=== PATIENT | male | born 1970 | race Caucasian/White ===

== ENCOUNTER 2022-11-23 13:05 | Emergency (ER) | payer OTHER, SELFPAY ==
[2022-11-23 13:06] VITALS: BP 79/64; PULSE 44; RESP 16; TEMP 36.6; O2SAT 98; BMI 26.4
[2022-11-23 13:29] VITALS: BP 119/86
--- NOTE | 2022-11-23 14:13 | RAD_ITS ---
STUDY: X-RAY - LEFT HAND REASON FOR EXAM: Male, 52 years old. Laceration between the first and second metacarpals. TECHNIQUE: 3 view(s) of the hand. COMPARISON: None. FINDINGS: Normal radiocarpal articulation. Normal distal radioulnar joint. Normal visualized carpal bones. Normal carpal articulations Normal carpometacarpal articulation of the thumb. Normal second through fifth carpometacarpal joints. Normal metacarpi. Normal metacarpophalangeal joint of the thumb. Normal interphalangeal joint of the thumb. Normal proximal and distal phalanges of the thumb. Normal metacarpophalangeal joints of the second through fifth fingers. Normal proximal and distal interphalangeal joints of the second through fifth fingers. Normal phalanges of the second through fifth fingers. Soft tissue laceration. No radiopaque foreign body is seen. RAD/Hand Min 3 Views IMPRESSION: Soft tissue laceration. No radiopaque foreign body is seen. Electronically Signed: Sancho Perez MD at 14:52 EDT ,
--- NOTE | 2022-11-23 14:14 | EX.ED.DYSGE1 ---
HPI <AMENA Greene - Last Filed: 11/23/22 16:35> History of Present Illness Chief Complaint: Laceration Narrative Narrative: 52-year-old male with history of difficulty hearing, chronic stomach issues who presents to the emergency department after left hand injury. Patient was using a bow and arrow, unfortunately he was using a arrow that has splintered, when he shot it it broke striking his left hand. He is concerned that there is carbon fibers in his hand. He does have a flap-like laceration to the dorsal aspect of the left hand. Unknown tetanus vaccination. Patient is able move all fingers, he states he has some numbness to the left index finger. No other injury noted. PFSH <AMENA Greene - Last Filed: 11/23/22 16:35> [facility] Home Medications cephalexin 500 mg capsule 500 mg PO TID #21 caps 11/23/22 [Rx Last Taken Unknown] sucralfate 1 gram tablet 1 g PO 4X/DAY 11/23/22 [History Last Taken Unknown] Allergy/AdvReac Type Severity Reaction Status Date / Time Antihistamines - Alkylamine Allergy Other Verified 11/23/22 13:07 Social History Smoking Status: Never smoker ROS <AMENA Greene - Last Filed: 11/23/22 16:35> ROS ED ROS Narrative Constitutional: Negative for fever, chills, weight loss, weakness Eyes: Negative for vision loss, vision change, double vision ENT: Negative for any sore throat, ear pain, congestion Cardiovascular: Negative for any chest pain, tightness, palpitations Respiratory: Negative for any cough, sputum production, hemoptysis, dyspnea, dyspnea on exertion, orthopnea Gastrointestinal: Negative for any abdominal pain, nausea, vomiting, diarrhea, constipation, blood in stool, blood in vomit : Negative for any urinary frequency, dysuria, retention, blood in urine Muscle skeletal: Negative for any muscle joint pain, stiffness, myalgias, arthralgias, neck pain, back pain. Positive left hand pain, left hand laceration Neurological: Negative for any headache, syncope, numbness or tingling, dizziness Skin: Negative for any rashes, lumps, itching, abrasions. Positive for laceration to the left hand Psychiatric: Negative for any depression, anxiety, stress, suicidal ideation, homicidal ideation Hematologic: Negative for any easy bruising, excessive bruising, easy bleeding Allergies: Negative for any eczema, hives, rash EXAM <AMENA Greene - Last Filed: 11/23/22 16:35> Physical Exam Narrative Exam Narrative: Vital signs reviewed. Extremities: No peripheral edema, no signs of gross trauma or deformity. Active full range of motion of all extremities. Patient is able to fully extend, flex all fingers of the left hand. On the dorsal aspect of the hand in between the thumb and index finger, there is a 2 cm flap-like laceration. No obvious foreign body noted. Patient has +2 radial pulse. Neuro: Cranial nerves II through XII intact, no focal neurological deficits. Skin: Clean dry and intact with no rash, purpura, petechiae, vesicles or pustules. Backs/flank: No CVA tenderness, no midline spinal tenderness, no deformity. Psych: Normal mood and affect. No SI, HI or acute psychosis. Const Vital Signs: 11/23/22 13:06 11/23/22 13:29 Temperature 97.8 F Temperature Source Temporal Pulse Rate 44 L Respiratory Rate 16 Blood Pressure 79/64 L 119/86 H Blood Pressure Mean 69 97 Pulse Ox 98 Oxygen Delivery Method Room Air <Dr. Wiley Armendariz DO - Last Filed: 11/24/22 07:52> Physical Exam Const Vital Signs: 11/23/22 13:06 11/23/22 13:29 Temperature 97.8 F Temperature Source Temporal Pulse Rate 44 L Respiratory Rate 16 Blood Pressure 79/64 L 119/86 H Blood Pressure Mean 69 97 Pulse Ox 98 Oxygen Delivery Method Room Air MDM <AMENA Greene - Last Filed: 11/23/22 16:35> MDM Radiography Diagnostic Testing: Clinical Impression(s) from Imaging Studies Hand X-Ray 11/23/22 14:13 IMPRESSION: Soft tissue laceration. No radiopaque foreign body is seen. Electronically Signed: Sancho Perez MD at 14:52 EDT , Treatment and Re-Evaluation :: All radiologic examinations were read, reviewed by the emergency department attending. From these reads, a plan of care will be put in place. Patient's x-ray of the left hand shows no radiopaque foreign body, there is some soft tissue from around the laceration. The laceration is roughly 2 cm in a flap-like pattern. This was irrigated copiously with 500 cc of normal saline. There was small black fibers. I was able to remove multiple. Sterile gloves, sterile drapes were used. I was able to place 4 simple ruptured sutures of 5-0 Ethilon. Secondary to the patient's injury, the patient will be placed on Keflex 3 times a day for 1 week. He will continue to ice and keep the area covered. I was able speak to the patient as well as the patient's friend all questions were answered, patient was given strict return precaution return for any redness, drainage. He is happy with the plan of care and stable for discharge. There is no evidence to suspect any tendon involvement, patient after suture still had full range of motion of his hands. <Dr. Wiley Armendariz, DO - Last Filed: 11/24/22 07:52> MDM Radiography Diagnostic Testing: Clinical Impression(s) from Imaging Studies Hand X-Ray 11/23/22 14:13 IMPRESSION: Soft tissue laceration. No radiopaque foreign body is seen. Electronically Signed: Sancho Perez MD at 14:52 EDT , Treatment and Re-Evaluation :: All radiologic examinations were read, reviewed by the emergency department attending. From these reads, a plan of care will be put in place. Patient's x-ray of the left hand shows no radiopaque foreign body, there is some soft tissue from around the laceration. The laceration is roughly 2 cm in a flap-like pattern. This was irrigated copiously with 500 cc of normal saline. There was small black fibers. I was able to remove multiple. Sterile gloves, sterile drapes were used. I was able to place 4 simple interrupted sutures of 5-0 Ethilon. Secondary to the patient's injury, the patient will be placed on Keflex 3 times a day for 1 week. He will continue to ice and keep the area covered. I was able speak to the patient as well as the patient's friend all questions were answered, patient was given strict return precaution return for any redness, drainage. He is happy with the plan of care and stable for discharge. There is no evidence to suspect any tendon involvement, patient after suture still had full range of motion of his hands. ED attending note: I evaluated the patient in conjunction with the [facility]. I agree with his/her statements and above findings. I personally saw the patient performed chart review, physical exam, reviewed labs, imaging (if obtained), and formulated a treatment and management plan. Exam: Nursing triage notes reviewed, Vital signs reviewed Constitutional: please see mdm Lungs: Clear to auscultation, No wheezing or rales. No increased work of breathing, no conversational dyspnea, no accessory muscle use, no nasal flaring. No respiratory distress noted Heart: Regular rate and rhythm, No murmurs, No rubs and No gallops, 2+ distal pulses (radial, femoral, posterior tibial) in all extremities : No CVAT Extremities: No edema, no obvious tendinous involvement. Intact flexion flexor digitorum superficialis and profundus Neuro: Intact 5/5 strength with ok sign (median), intact finger abduction (ulnar) intact wrist extension (radial n). Intact sensation in the radial, ulnar, and median nerve distributions. Skin: Curvilinear laceration noted to the dorsal surface of the left hand between the first and second digits MDM/plan: Chief Complaint: Hand laceration External records reviewed: Unknown last tetanus I considered the following differential diagnosis: Laceration, foreign body, tendon dysfunction No evidence of tendon dysfunction, foreign body. Laceration was repaired by [facility]. Please refer to their note for further details. Factors affecting care: Developmental disability Social determinants of health: Never smoker History obtained from others: The patient's friend Shared decision making: I will have a discussion with the patient and or visitors regarding risk/benefits of further testing or admission. They will be made aware of of the risk/benefits inherent in this decision they will be given the opportunity to voice understanding. Consults: None Procedures <AMENA Greene - Last Filed: 11/23/22 16:35> Lacerations hand laceration: Length: 0.79 in Depth: Skin Shape: Flap Prep: Sterile Conditions and Shure-Clens Laceration repair: Debrideded, Irrigated, Lidocaine with epi and Wound explored Irrigated (ml): 500 Number of Sutures/[place]: 4 Suture Information: Ethilon and Simple Comment: Sterile gloves, sterile drapes were used. Discharge Plan Triage Chief Complaint: Laceration ED Midlevel Provider: Roosevelt Gonzalez ED Provider: Wiley Armendariz Dx/Rx/DC Orders Clinical Impression: Laceration of hand, left Instructions: ED Laceration Extremity Prescriptions: New cephalexin 500 mg capsule 500 mg PO TID Qty: 21 0RF No Action sucralfate 1 gram tablet 1 g PO 4X/DAY Label Comments: Take 1 tablet by mouth four times daily. Primary Care Provider: Keanu Marino Referrals: Keanu Marino [Primary Care Provider] - Activity Restrictions/Additional Instructions: The sutures need to be removed in 10 days. Return for any signs of redness or infection. Disposition Disposition: Home, Self Care Discharge Date/Time: 11/23/22 16:51
[2022-11-23] MEDS: HYDROcodone Bitartrate/Apap 5/325 Tablet PO (14:40)
[2022-11-23] MEDS: Diphth,Pertuss(Acell),Tet Vac 0.5 ML Vial IM (14:40)
[2022-11-23] MEDS: Cephalexin 250 MG Capsule 500 MG PO (16:44)
== END 2022-11-23 16:51 | disposition home or self-care (01) ==
PROVIDERS: Emergency Provider Emergency Medicine; Visit Provider Emergency Medicine
DX: S61.412A Laceration without foreign body of left hand, initial encounter (principal); W26.9XXA Contact with unspecified sharp object(s), initial encounter; Z23 Encounter for immunization
CPT/HCPCS: 12001; 73130; 90471; 90715; 99283